=== PATIENT | female | born 1995 | race Caucasian/White ===

== ENCOUNTER 2023-09-23 08:44 | Outpatient (AMB) | payer OTHER, SELFPAY ==
--- NOTE | 2023-09-23 10:19 | AM.OFFWIN_ITS ---
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 Reporting symptoms of sinus breann estion, sore throat and difficulty swallowing. Low-grade fever. No family member is sick. No recent travel. Patient reports symptoms of malaise and fatigue. [facility] Social History Patient Tobacco Use Status: Never used Tobacco Physical Exam Vital Signs: Last Vital Signs Temp 98.3 F 09/23/23 10:26 Pulse 85 09/23/23 10:26 BP 130/76 09/23/23 10:26 Pulse Ox 97 09/23/23 10:26 Oxygen Delivery Method Room Air 09/23/23 10:26 Const General: cooperative and healthy appearing Nutritional Appearance: well nourished Orientation/consciousness: patient oriented x3 Limitations: no limitations HEENT Head: Yes normal to inspection Eyes General: appearance normal, both eyes and all related structures Neck Neck: Yes normal visual inspection Chest Chest palpation & inspection: normal palpation of entire chest wall Resp Effort & Inspection: normal respiratory effort Neuro General: patient oriented x3 Results AMB Rapid Strep AMB Rapid Strep Negative Last Edit by Marine Esqueda CMA on 09/23/23 10:37 Results Reviewed Results Reviewed: Laboratory Last Values Strep Scn Rapid Clinic Negative 09/23/23 10:32 Assessment & Plan Assessment & Plan (1) Upper respiratory tract infection: Code(s): J06.9 - Acute upper respiratory infection, unspecified Plan: Antibiotics ordered. Increase fluid intake. Tylenol for aches and pains. If symptoms worsen, follow-up here for a recheck. Orders: Orders AMB Rapid Strep Screen Today J02.9 - Acute pharyngitis, unspecified WAYLON Quevedo Medications: New azithromycin take 500 mg today (day 1), then 250 mg for 4 days (days 2-5) PO 6 tabs 0RF Zion Conway MD Coding Level of Care Code Est Pt Level 3 (58010) Diagnoses Upper respiratory tract infection J06.9
[2023-09-23 10:26] VITALS: BP 130/76; PULSE 85; TEMP 36.8; O2SAT 97
== END 2023-09-23 11:04 | disposition home or self-care (01) ==
LOC: HO.HMGWI 08:44
PROVIDERS: Visit Provider Internal Medicine
DX: J06.9 Acute upper respiratory infection, unspecified (principal); J02.9 Acute pharyngitis, unspecified
CPT/HCPCS: 87880; 99213

== ENCOUNTER 2025-01-14 08:36 | Outpatient (AMB) | payer OTHER, SELFPAY ==
--- NOTE | 2025-01-14 08:42 | A.OFFPC_ITS ---
Vital Signs 01/14/25 08:45 Height 5 ft 4.76 in Weight 316 lb 8 oz BMI 53.1 BP 130/70 Blood Pressure Location Lt brachial Position Sitting Pulse 85 Pulse Source Pulse Oximeter Temp 97.5 F Temp Source Temporal Artery Scan Pulse Oximetry (%) 93 Oxygen Delivery Method Room Air Intake Visit Reasons: establish care Intake Note: Patient is a new patient here to establish care for Hx Asthma, ADHD. Transferring care from [facility]. Medical records have been requested and have not received. Field Support Technician Required: No Ware Finisher: Not Required per policy Accompanied by: Self / Same As Patient Allergies amoxicillin Allergy (Mild, Verified 01/14/25 08:49) Unknown codeine Allergy (Mild, Verified 01/14/25 08:49) Hives Penicillins Allergy (Mild, Verified 01/14/25 08:49) Unknown Medication List - Last Reconciled 01/14/25 by Kalpana Mendez PA-C escitalopram oxalate 5 mg PO DAILY levonorgestrel (Mirena) intrauterine Tobacco use date assessed: 01/14/25 Dental Screening Dental Screen Date: 01/14/25 Did you have a dental visit in the last 12 months?: Yes Did you have a dental problem in the last 6 months where you did not have access to dental care?: No Was dental information given to patient?: Patient has dentist HPI establish care HPI Details 29-year-old female coming to the office for the 1st time. Presenting for a wellness examination required for her employment. Her history includes anxiety and depression, currently managed with newly started escitalopram, although no significant effects have been mentioned thus far. The patient is followed by a psychiatrist and a therapist. Her menstrual cycles have ceased due to the Mirena IUD placement, and she attended regular gynecological evaluations at [facility]. Currently, she reports left wrist tendinitis, with pain upon certain motions, but no numbness or tingling reported. 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 1. Little interest or pleasure in doing things: not at all 2. Feeling down, depressed, or hopeless: several days 3. Trouble falling or staying asleep, or sleeping too much: several days 4. Feeling tired or having little energy: several days 5. Poor appetite or overeating: not at all 6. Feeling bad about yourself - or that you are a failure or have let yourself or your family down: several days 7. Trouble concentrating on things, such as reading the newspaper or watching television: more than half the days 8. Moving or speaking so slowly that other people could have noticed. Or the opposite - being so fidgety or restless that you have been moving around a lot more than usual: not at all 9. Thoughts that you would be better off or of hurting yourself in some way: not at all Total score: 6 Depression Screening Interpretation: Positive Depression Screening Follow-up: Existing condition and In treatment Depression Screening Done: Yes 61405 - PHQ-9 Billing: Yes Source: Developed by Drs. Elvin Gilbert, Sonya Sheikh, Adalid Scott and colleagues, with an educational nevaeh from [employer]. Thrive Questionnaire Date Thrive assessed: 01/14/25 I am a: Patient What is your living situation today?: I have a steady place to live Within the past 12 months, did the food you bought not last and you didn't have the money to get more?: Never true Within the past 12 months, did you worry whether your food would run out before you got money to buy more?: Never true Do you have trouble paying for medicines?: No Do you have trouble getting transportation to medical appointments?: No Do you have trouble paying your heating and electricity bill?: No Do you have trouble taking care of your child, family member or friend?: No Do you have trouble with day-to-day activities such as bathing, preparing meals, shopping, managing finances, etc.?: No Are you currently unemployed and looking for a job?: No Are you interested in more education?: No Please select the resources that you would like help with: None Currently or been in a relationship where the following occur: I choose not to answer THRIVE Score: 0 AUDIT C Alcohol Use Questionnaire (AUDIT-C) 1. How often do you have a drink containing alcohol?: Never Total Score: 0 ELIZABETH-7 AMB Questionnaire ELIZABETH-7 Date ELIZABETH - 7 assessed: 01/14/25 Feeling nervous, anxious, or on edge: 2 = More than half the days Not being able to stop or control worryin = More than half the days Worrying too much about different things: 1 = Several days Trouble relaxin = Not at all Being so restless that it is hard to sit still: 0 = Not at all Becoming easily annoyed or irritable: 3 = Nearly every day Feeling afraid as if something awful might happen: 0 = Not at all Total ELIZABETH-7 score (0-4 normal; 5-9 mild; 10-14 moderate; 15-21 severe): 8 Source: Developed by Drs. Elvin Gilbert, Sonya Sheikh, Adalid Scott and colleagues, with an educational nevaeh from [employer]. ELIZABETH-7 Assessment Billing ELIZABETH-7 Assessment Tool: ELIZABETH-7 Assessment 13001 Review of Systems Const Denies body aches, Denies chills, Denies fatigue, Denies fever(s), Denies headache(s) and Denies poor appetite Eyes Reports no additional complaints ENT Denies dysphagia, Denies dizziness, Denies headache(s) and Denies odynophagia Card Denies chest pain, Denies syncope, Denies edema, Denies irregular heart rhythm, Denies lightheadedness and Denies dyspnea Resp Denies cough and Denies dyspnea GI Denies abdominal pain, Denies constipation, Denies dysphagia, Denies diarrhea, Denies nausea, Denies odynophagia and Denies vomiting Denies urinary frequency, Denies dysuria, Denies urinary hesitancy and Denies urinary urgency Musc Reports no additional complaints and Denies abnormal gait Skin/Breast Reports system reviewed and no additional complaints, except as documented Neuro Denies abnormal gait, Denies dizziness, Denies syncope and Denies headache(s) Psych Reports no additional complaints Endo Denies fatigue Physical exam (Primary Care) Vital Signs: Last Vital Signs Temp 97.5 F 01/14/25 08:45 Pulse 85 01/14/25 08:45 BP 130/70 01/14/25 08:45 Pulse Ox 93 01/14/25 08:45 Oxygen Delivery Method Room Air 01/14/25 08:45 BMI result Body Mass Index 53.1 Tobacco/Smoking Status: Tobacco use Status Tobacco use date assessed 01/14/25 01/14/25 08:48 Patient Tobacco Use Status Never used Tobacco 01/14/25 08:48 e-Cigarette/Vaping Use Never Used 01/14/25 08:48 PHQ-9: PHQ-9 Score PHQ-9: Total score 6 01/14/25 09:01 Depression Screening Interpretation: Positive Depression Screening Follow-up: Existing condition and In treatment Thrive Assessment: Date of Thrive Assessment Date Thrive assessed 01/14/25 01/14/25 08:48 Currently or been in a relationship where the following occur: I choose not to answer Const General: cooperative, healthy appearing, comfortable and no acute distress Orientation/consciousness: patient oriented x3 HENMT Head: Yes normocephalic Ears: hearing grossly normal bilaterally General nose exam: Normal external nose present Face and sinus: Yes normal facial exam and Yes sinuses nontender Mouth: Normal oral and palatal mucosa present and tongue normal Throat: Yes posterior oropharynx normal Eyes General: appearance normal, both eyes and all related structures Conjunctivae: conjunctivae normal Pupils: Equal, round and reactive pupils present EOM: EOMs intact bilaterally and No Nystagmus present Neck Neck: Yes full ROM and Yes no lymphadenopathy Chest Chest palpation & inspection: normal inspection of the chest Resp Effort & Inspection: normal respiratory effort Auscultation: clear to auscultation bilaterally, no crackles, no rales, no rhonchi and no wheezes Cardio Rate: regular rate Rhythm: regular rhythm Peripheral pulses: radial pulses present and dorsalis pedis present GI Inspection: Yes normal to inspection and No Abdominal wall edema Palpation (GI): Soft to palpation, not firm and nontender Auscultation: normal bowel sounds Rectal Exam - Female: deferred General: Yes no CVA tenderness Back/Spine/Pelvis Back: no CVA tenderness Skin General skin exam: no rashes or lesions noted Neuro General: patient oriented x3 Cranial nerves: Yes Equal, round and reactive pupils present, Yes Midline tongue present, Yes Ability to bilaterally elevate shoulders present and No Nystagmus present Gait exam (Neuro): Normal gait present Extrem Other: Tenderness to palpation over left thenar eminence. Positive Eva test in the left side General: Yes normal to inspection, Yes full ROM and No edema Psych Speech and movement: Normal speech and movement present Affect: normal affect Attitude: cooperative Insight: Good insight present (Psych) Judgement: Good judgement present (Psych) Immunizations Boostrix Tdap 2.5 Lf unit-8 mcg-5 Lf/0.5 mL intramuscular syringe Performing Provider: Kalpana Mendez PA-C Performing Location: [facility] Administered by: Hui Romero LPN on 01/14/25 09:16 Dose Route Admin Location Dispensed Lot Number Expiration Date NDC Chief Nurse Anesthetist 0.5 mL IM Left Deltoid 0.5 mL [id number] 04/12/27 [id number] [employer] VIS Given Date VIS Provided VIS Publication Date 01/14/25 Single Vaccine 21 Eligibility Eligibility Date Funding Source Not [facility] Eligible 01/14/25 Private Coding Level of Care Code New Pt Prev Care 18-39yr(83072 Diagnoses Anxiety F41.9 Depression F32.A Annual physical exam Z00.00 Tendinitis, de Quervain's M65.4 Additional Codes ELIZABETH-7 Assessment Billing - ELIZABETH-7 Assessment Tool: ELIZABETH-7 Assessment 06027 ([id number]) PHQ-9 - 98706 - PHQ-9 Billing: Yes ([id number]) Assessment & Plan Assessment & Plan (1) Anxiety: Code(s): F41.9 - Anxiety disorder, unspecified Category: Medical Plan: Patient currently following with psychiatrist and counselor. Continue on escitalopram. (2) Depression: Code(s): F32.A - Depression, unspecified Category: Medical Plan: Patient currently following with psychiatrist and counselor. Continue on escitalopram. (3) Annual physical exam: Code(s): Z00.00 - Encounter for general adult medical examination without abnormal findings Category: Medical Plan: Patient is up-to-date on all recommended routine screenings and vaccinations for her age. Tetanus vaccine was updated today. Healthy diet and regular exercise is encouraged. Plan to follow up in 1 year or sooner if new problems arise or pending blood work evaluation. Ordered for updated blood work (4) Tendinitis, de Quervain's: Code(s): M65.4 - Radial styloid tenosynovitis [de Quervain] Category: Medical Plan: Tenderness to palpation over left thenar eminence and positive Eva test on the left side suggestive of de Quervain tendonitis. Recommend heating pads, Tylenol and ibuprofen as needed for pain and the use of a thumb spica splint. Advised to follow up if symptoms worsen or persist. Can consider orthopedics referral or occupational therapy referral Plan This note was constructed using voice recognition software. While every effort has been made to ensure accuracy and prom burn off operator, still areas may have been included sometimes these areas may affect the content or meeting of the given symptoms. Total time spent caring for the patient today was 30 minutes. This includes time spent before the visit reviewing the chart, time spent during the visit, and time spent after the visit and documentation. Patient was informed and verbally consented to the use of an ambient scribe for clinic note documentation during this visit. Orders: Orders TSH reflex Free T4 Today Z00.00 - Encounter for general adult medical examination without abnormal findings CT NG by PCR Today Z00.00 - Encounter for general adult medical examination without abnormal findings Comprehensive Met. Panel Today Z00.00 - Encounter for general adult medical examination without abnormal findings Free T4 (Free Thyroxine) Today Z00.00 - Encounter for general adult medical examination without abnormal findings Vitamin B12 and Folate Today Z00.00 - Encounter for general adult medical exa mination without abnormal findings Vitamin D 25-OH Total Today Z00.00 - Encounter for general adult medical examination without abnormal findings Complete Blood Count Auto Diff Today Z00.00 - Encounter for general adult medical examination without abnormal findings TDaP Immunization Today Z23 - Encounter for immunization Medications: New Boostrix Tdap (diphth,pertus(acell),tetanus) 0.5 mL IM ONCE 0.5 mL 0RF NS Z23 - Encounter for immunization
[2025-01-14 08:45] VITALS: BP 130/70; PULSE 85; TEMP 36.4; O2SAT 93; BMI 53.1
--- OUTSIDE RECORDS SUMMARY | 2025-01-14 09:07 | XMS_ITS | Clinical Summary ---
Author Organization [address] Address [address] [place] [phone] Phone Care Team Providers Care Donkey Ride Operator Name Role Phone Adriana Youssef MD Primary Care Provider [phone] Allergies Active Allergy Reactions Criticality Noted Date Comments Amoxicillin 07/13/2018 Codeine 07/13/2018 Medications levonorgestreL (MIRENA) 21 mcg/24hr (up to 8 yrs) 52 mg IUD 1 Each by Intrauterine route once. Active azithromycin (ZITHROMAX) 250 mg tablet TAKE 2 TABLETS BY MOUTH TODAY, THEN TAKE 1 TABLET DAILY FOR 4 DAYS DIRECTED 3 Active ibuprofen (ADVIL,MOTRIN) 600 mg tablet TAKE 1 TABLET BY MOUTH 4 TIMES A DAY FOR 7 DAYS 4 Active Lidocaine Viscous 2 % solution TAKE 15 ML (MUCOUS MEMBRANE) 2 TIMES PER DAY (PAIN) FOR 7 DAYS 4 Active metroNIDAZOLE (FLAGYL) 500 mg tablet Take 1 tablet (500 mg total) by mouth 2 (two) times a day. for 7 days 4 Active Active Problems Problem Noted Date Diagnosed Date Morbid obesity with BMI of 4 5.0-49.9, adult (CMS/[facility] V24, [facility] V28) 08/17/2024 Surgical History Surgery Date Site/Laterality Comments KIDNEY STONE SURGERY 04/2017 PROCEDURE: [place] NEPHROLITHOTOMY REMOVAL CALCULUS Medical History Medical History Date Comments Asthma DX:Asthma Kidney stone DX:Kidney stone Adhd DX:ADHD Family History Medical History Relation Name Comments Breast cancer Neg Hx Colon cancer Neg Hx Ovarian cancer Neg Hx Prostate cancer Neg Hx Uterine cancer Neg Hx Relation Name Status Comments Brother Alive Father Alive Maternal Grandfather Maternal Grandmother Alive Mother Alive Paternal Grandfather Alive Paternal Grandmother Sister 1 Alive Sister 2 Alive Social History Tobacco Use Types Packs/Day Years Used Date Smoking Tobacco: Never Smokeless Tobacco: Never Tobacco Cessation:Counseling Given: Not Answered Alcohol Use Standard Drinks/Week Comments Yes 0 (1 standard drink = 0.6 oz pur e alcohol) Comments No Sex and Gender Information Value Date Recorded Sex Assigned at Not on file Legal Sex Female 10:27 AM EST Gender Identity Not on file Sexual Orientation Not on file Obstetrics History Last Filed Vital Signs Vital Sign Reading Time Taken Comments Blood Pressure 130/88 09/10/2024 1:07 PM EST Pulse 89 09/10/2024 1:07 PM EST Temperature - - Respiratory Rate - - Oxygen Saturation - - Inhaled Oxygen Concentration - - Weight 146 kg (322 lb) 09/10/2024 1:07 PM EST Height 165.1 cm (5' 5 ) 01/10/2024 9:06 AM EDT Body Mass Index 53.58 01/10/2024 9:06 AM EDT Plan of Treatment Health Maintenance Due Date Last Done Comments DTaP,Tdap,and Td Vaccines (1 - Tdap) 01/27/2016 Hepatitis B Vaccines (1 of 3 - 19+ 3-dose series) 01/27/2016 Cholesterol Screening (Lipid Panel) 08/31/2022 Depression Screening 08/31/2022 Social Influencers of Health Screening 08/31/2022 COVID-19 Vaccine ( season) 2024 Influenza Vaccine (Season Ended) 2025 Cervical Cancer Screening: Pap Smear 11/16/2025 11/16/2022, 11/16/2022, 11/16/2022, Additional history exists HIV Screening Completed 09/10/2024, 040 06/2024, 01/10/2024 Hepatitis C Screening Completed 09/10/2024, 024 HIB Vaccines Aged Out No longer eligi ble based on patient's age to complete this topic HPV Vaccines Aged Out No longer eligi ble based on patient's age to complete this topic Hepatitis A Vaccines Aged Out No long er eligible based on patient's age to complete this topic IPV Vaccines Aged Out No longer eligi ble based on patient's age to complete this topic MMR Vaccines Aged Out No longer eligi ble based on patient's age to complete this topic Meningococcal ACWY Vaccine Aged Out N o longer eligible based on patient's age to complete this topic Meningococcal B Vaccine Aged Out No l onger eligible based on patient's age to complete this topic Pneumococcal Vaccine: Pediatrics (0 to 5 Years) and At-Risk Patients (6 to 64 Years) Aged Out No longer eligible based on patient's age to complete this topic RSV Immunization Patients Under 20 months Aged Out No longer eligible based on patient's age to complete this topic Varicella Vaccines Aged Out No longer eligible based on patient's age to complete this topic Procedures Procedure Name Priority Date/Time Associated Diagnosis Comments HEPATITIS C ANTIBODY Routine 09/10/2024 1:27 PM EST Encounter for screening for viral disease HIV 1, 2 ANTIBODY, P24 ANTIGEN WITH REFLEX TO DIFFERENTIATION Routine 09/10/2024 1:27 PM EST Encounter for screening for viral disease PAP SMEAR Routine 11/16/2022 from Last 3 Months or Most Recently Relevant to Health Maintenance Results * Hepatitis C antibody (09/10/2024 1:27 PM EST) Hepatitis C Antibody Negative Negative LAB CHEMISTRY METHOD 09/10/2024 6:15 PM EST [facility] Blood Venous blood specimen / Unknown Venipuncture / Unknown 09/10/2024 1:27 PM EST 09/10/2024 1:27 PM EST us Rosanne SALTER LAB BLOOD ORDERABLES Final Re sult [facility] [address] [place] [address], [place] [phone] * HIV 1,2 antibody, p24 antigen with reflex to differentiation (09/10/2024 1:27 PM EST) HIV Combo AB/AG Negative Negative LAB CHEMISTRY METHOD 09/10/2024 6:15 PM EST [facility] Blood Venous blood specimen / Unknown Venipuncture / Unknown 09/10/2024 1:27 PM EST 09/10/2024 1:27 PM EST Narrative [facility]) [facility] - 09/10/2024 6:15 PM EST This assay is a 4th generation assay allowing for earlier detection of HIV infection by detecting the presence of the HIV-1 p24 antigen as well as the traditional antibodies to HIV type 1 (including group O) and type 2. ??Use of a 4th generation assay is the current CDC recommendation for HIV screening. Rosanne Fairbanks [facility] BLOOD ORDERABLES Final Re sult Performing Organization Address City/[facility]/ZIP Co de Phone Number [facility] [address] [place] [address], [place] [phone] * Pap smear (11/16/2022) 11/16/2022 Narrative HISTORICAL TESTING LAB RESULTING AGENCY - 11/24/2022 11:31 AM EST [id number] THINPREP PAP, IMAGED: NEGATIVE FOR SQUAMOUS INTRAEPITHELIAL LESION AND MALIGNANCY . FUNGAL ORGANISMS MORPHOLOGICALLY CONSISTENT WITH JAYESH SPP. SHIFT IN TU, SUGGESTIVE OF BACTERIAL VAGINOSIS. JOHNATHAN REDDY(ASCP) (CASE ELECTRONICALLY SIGNED 11 23 2022) ADEQUACY: SATISFACTORY ENDOCERVICAL/TRANSFORMATION ZONE COMPONENT PRESENT. SOURCE: THINPREP PAP HPV IF ASCUS: REFLEX 16 AND 18, CERVICAL CLINICAL INFORMATION: HPV IF DIAGNOSIS OF ASCUS. [Z12.4] HORMONES IUD PAP HX NEGATIVE Nely Monte DO LAB CYTOLOGY ORDERABLES Final Result HISTORICAL TESTING LAB RESULTING AGENCY from Last 3 Months or Most Recently Relevant to Health Maintenance Insurance [facility] PUBLIC PLANS COMMERCIAL GENERIC [facility] PUBLIC PLANS Care Teams Donkey Ride Operator Relationship Specialty Start Date End Date Adriana Youssef MD [address] [place] [phone] PCP - General Internal Medicine 05/16/18
== END 2025-01-14 09:22 | disposition home or self-care (01) ==
LOC: HO.HMCH 08:37
DX: F41.9 Anxiety disorder, unspecified (principal); F32.A Depression, unspecified; Z00.00 Encounter for general adult medical examination without abnormal findings; M65.4 Radial styloid tenosynovitis [de Quervain]; Z23 Encounter for immunization

== ENCOUNTER 2025-01-14 08:36 | Outpatient (REF) | payer OTHER, SELFPAY ==
[2025-01-14 09:37] LABS: MANUAL DIFF FLAG NO
[2025-01-14 09:53] LABS: Basophils Absolute Auto 0.1 X10*3/uL (0.0-0.2); Basophils Percent Auto 0.6 % (0-2); Eosinophils Absolute Auto 0.3 X10*3/uL (0.0-0.4); Eosinophils Percent Auto 2.8 % (0-4); Hematocrit 44.6 % (37.0-47.0); Imm Gran Abs Auto 0.03 X10*3/uL (0.00-0.03); Imm Gran Pct Auto 0.3 % (0.0-0.4); Lymphocytes Absolute Auto 3.5 X10*3/uL (1.2-4.9); Lymphocytes Percent Auto 38.9 % (20-40); Mean Corpuscular HGB Conc 33.6 g/dl (31.0-35.0); Mean Corpuscular Hemoglobin 29.7 pg (27.0-33.0); Mean Corpuscular Volume 88.3 fL (80.0-98.0); Mean Platelet Volume 9.1 fL (9.4-12.3); Monocytes Absolute Auto 0.6 X10*3/uL (0.1-1.2); Monocytes Percent Auto 6.3 % (2-11); Neutrophils Absolute Auto 4.5 x10*3/uL (2.0-8.3); Neutrophils Percent Auto 51.1 % (45-73); Platelet Count 328 X10*3/uL (160-400); Red Blood Count 5.05 X10*6/uL (4.20-5.50); White Blood Count 8.9 X10*3/uL (4.8-10.8)
--- OUTSIDE RECORDS SUMMARY | 2025-01-14 10:25 | XMS_ITS | Clinical Summary ---
Author Organization [address] Address [address] [place] [phone] Phone Care Team Providers Care Micro Photographer Name Role Phone Adriana Youssef MD Primary Care Provider [phone] Allergies Active Allergy Reactions Criticality Noted Date [...] obesity with BMI of 4 5.0-49.9, adult (CMS/[facility] V24, [facility] V28) 08/17/2024 Surgical History Surgery Date Site/Laterality Comments KIDNEY STONE SURGERY 04/2017 PROCEDURE: [place] NEPHROLITHOTOMY REMOVAL CALCULUS Medical History Medical History [...] LAB CHEMISTRY METHOD 09/10/2024 6:15 PM EST [facility] Blood Venous blood specimen / Unknown Venipuncture / Unknown 09/10/2024 1:27 PM EST 09/10/2024 1:27 PM EST us Rosanne SALTER LAB BLOOD ORDERABLES Final Re sult [facility] [address] [place] [address], [place] [phone] * HIV 1,2 antibody, p24 antigen with reflex to differentiation (09/10/2024 1:27 PM EST) HIV Combo AB/AG Negative Negative LAB CHEMISTRY METHOD 09/10/2024 6:15 PM EST [facility] Blood Venous blood specimen / Unknown Venipuncture / Unknown 09/10/2024 1:27 PM EST 09/10/2024 1:27 PM EST Narrative [facility] ([facility]) [facility] - 09/10/2024 6:15 PM EST This assay is a 4th generation assay allowing for earlier detection of HIV infection by detecting the presence of the HIV-1 p24 antigen as well as the traditional antibodies to HIV type 1 (including group O) and type 2. ??Use of a 4th generation assay is the current CDC recommendation for HIV screening. Rosanne Fairbanks [facility] BLOOD ORDERABLES Final Re sult Performing Organization Address City/[facility]/ZIP Co de Phone Number [facility] ([facility]) [facility] [address] [place] [address], [place] [phone] * Pap smear (11/16/2022) 11/16/2022 Narrative HISTORICAL TESTING LAB RESULTING AGENCY - 11/24/2022 11:31 AM EST [id number] THINPREP PAP, IMAGED: NEGATIVE FOR SQUAMOUS INTRAEPITHELIAL [...] Most Recently Relevant to Health Maintenance Insurance [facility] PUBLIC PLANS COMMERCIAL GENERIC [facility] PUBLIC PLANS Care Teams Micro Photographer Relationship Specialty Start Date End Date Adriana Youssef MD [address] [place] [phone] PCP - General Internal Medicine 05/16/18
[2025-01-14 10:28] LABS: Alanine Aminotransferase 30 U/L (0-31); Albumin Level 4.1 g/dL (3.5-5.0); Alkaline Phosphatase 95 U/L (39-117); Anion Gap 10 (12-20); Aspartate Amino Transferase 24 U/L (5-31); Bilirubin Total 0.5 mg/dL (0.0-1.0); Blood Urea Nitrogen 12 mg/dL (9-16); Carbon Dioxide 23 mmol/L (22-29); Chloride 109 mmol/L (96-108); Estimated Glomerular Filt Rate > 60; Glucose Random 86 mg/dL (60-115); Potassium 4.2 mmol/L (3.3-5.1); Sodium 138 mmol/L (135-145); Total Protein 7.3 g/dL (6.5-8.0)
[2025-01-14 10:43] LABS: Free T4 (Free Thyroxine) 0.96 ng/dL (0.71-1.85); TSH reflex Free T4 2.41 uIU/mL (0.32-4.0); Vitamin D 25-OH Total 9.5 ng/mL (>30)
[2025-01-14 11:08] LABS: Folate 10.4 ng/mL (> or = 4.0); Vitamin B12 489 pg/mL (200-900)
[2025-01-14 13:57] LABS: CT PCR NOT DETECTED (Not Detect.); NG PCR NOT DETECTED (Not Detect.)
== END 2025-01-14 08:37 | disposition home or self-care (01) ==
LOC: HO.LAB 08:36
DX: Z00.00 Encounter for general adult medical examination without abnormal findings (principal); Z23 Encounter for immunization; F41.9 Anxiety disorder, unspecified; M65.4 Radial styloid tenosynovitis [de Quervain]
CPT/HCPCS: 80053; 82306; 82607; 82746; 84439; 84443; 85025; 87491; 87591; 90471; 90715; 96127; 99385

== ENCOUNTER 2025-02-04 14:44 | Outpatient (AMB) | payer OTHER, SELFPAY ==
--- NOTE | 2025-02-04 14:51 | A.OFFPC_ITS ---
Vital Signs 02/04/25 14:52 Height 5 ft 4 in Weight 319 lb 8 oz BMI 54.8 BP 120/62 Blood Pressure Location Lt brachial Position Sitting Pulse 88 Pulse Source Pulse Oximeter Temp 97.3 F Temp Source Temporal Artery Scan Pulse Oximetry (%) 95 Oxygen Delivery Method Room Air Intake Visit Reasons: ? Kidney Stones Intake Note: Patient is here to follow up on Kidney stones. Innovation Manager Required: No Centerpuncher: Not Required per policy Accompanied by: Self / Same As Patient Allergies amoxicillin Allergy (Mild, Verified 02/04/25 14:52) Unknown codeine Allergy (Mild, Verified 02/04/25 14:52) Hives Penicillins Allergy (Mild, Verified 02/04/25 14:52) Unknown Medication List - Last Reconciled 02/04/25 by Kalpana Mendez PA-C cholecalciferol (vitamin D3) 25 mcg PO DAILY escitalopram oxalate 10 mg PO DAILY levonorgestrel (Mirena) intrauterine Tobacco use date assessed: 02/04/25 Dental Screening Dental Screen Date: 01/14/25 HPI ? Kidney Stones HPI Details 30-year-old female with past medical his tory of anxiety and depression last seen 01/2025 coming in for acute problem. Presenting with suspected renal calculi recurrence. She describes severe kidney stone pain that began at 3:40 AM and lasted until around 7:30 AM. There is a significant history of renal calculi treated with lithotripsy and stent placement approximately seven to eight years prior, with no subsequent episodes until now. The pain is localized to the right flank and notably absent from the abdominal region. She denies any trauma, heavy lifting, or recent accidents prior to this episode. Notable increase in urinary frequency with no hematuria or dysuria observed. Symptomatic relief is achieved temporarily with hot showers. She did call her Urologist but they were unable to see her due to inactivity as a patient. 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 Cognitive needs: No Hearing needs: No Vision needs: No Questionnaire Thrive Questionnaire Date Thrive assessed: 01/14/25 I am a: Patient What is your living situation today?: I have a steady place to live Within the past 12 months, did the food you bought not last and you didn't have the money to get more?: Never true Within the past 12 months, did you worry whether your food would run out before you got money to buy more?: Never true Do you have trouble paying for medicines?: No Do you have trouble getting transportation to medical appointments?: No Do you have trouble paying your heating and electricity bill?: No Do you have trouble taking care of your child, family member or friend?: No Do you have trouble with day-to-day activities such as bathing, preparing meals, shopping, managing finances, etc.?: No Are you currently unemployed and looking for a job?: No Are you interested in more education?: No Please select the resources that you would like help with: None Currently or been in a relationship where the following occur: I choose not to answer THRIVE Score: 0 AUDIT C Alcohol Use Questionnaire (AUDIT-C) 2. How many drinks containing alcohol do you have on a typical day when you are drinking?: 1 or 2 3. How often do you have six or more drinks on one occasion?: Never Total Score: 0 ELIZABETH-7 AMB Questionnaire ELIZABETH-7 Date ELIZABETH - 7 assessed: 01/14/25 Source: Developed by Drs. Elvin Gilbert, Sonya Sheikh, Adalid Scott and colleagues, with an educational nevaeh from [employer]. Review of Systems Const Denies body aches, Denies chills, Denies fever(s) and Denies poor appetite Eyes Reports no additional complaints Card Denies chest pain, Denies lightheadedness and Denies dyspnea Resp Denies dyspnea GI Denies abdominal pain, Denies constipation, Denies diarrhea, Denies nausea and Denies vomiting Reports as per HPI Musc Reports no additional complaints and Denies abnormal gait Skin/Breast Reports system reviewed and no additional complaints, except as documented Neuro Denies abnormal gait Psych Reports no additional complaints Physical exam (Primary Care) Vital Signs: Last Vital Signs Temp 97.3 F 02/04/25 14:52 Pulse 88 02/04/25 14:52 BP 120/62 02/04/25 14:52 Pulse Ox 95 02/04/25 14:52 Oxygen Delivery Method Room Air 02/04/25 14:52 BMI result Body Mass Index 54.8 Tobacco/Smoking Status: Tobacco use Status Tobacco use date assessed 02/04/25 02/04/25 14:56 Patient Tobacco Use Status Never used Tobacco 02/04/25 14:56 e-Cigarette/Vaping Use Never Used 02/04/25 14:56 Thrive Assessment: Date of Thrive Assessment Date Thrive assessed 01/14/25 02/04/25 14:56 Currently or been in a relationship where the following occur: I choose not to answer Const General: cooperative, healthy appearing, comfortable and no acute distress Orientation/consciousness: patient oriented x3 HENMT Head: Yes normocephalic Ears: hearing grossly normal bilaterally General nose exam: Normal external nose present Eyes General: appearance normal, both eyes and all related structures Conjunctivae: conjunctivae normal Neck Neck: Yes full ROM and Yes no lymphadenopathy Resp Effort & Inspection: normal respiratory effort Auscultation: clear to auscultation bilaterally, no crackles, no rales, no rhonchi and no wheezes Cardio Rate: regular rate Rhythm: regular rhythm GI Palpation (GI): Soft to palpation, not firm, nontender, no guarding, not rigid, no masses and No Rebound tenderness present General: Yes no CVA tenderness Back/Spine/Pelvis Other: no tenderness to palpation over spine or paraspinal muscles Back: no CVA tenderness Skin General skin exam: no rashes or lesions noted Neuro General: patient oriented x3 Gait exam (Neuro): Normal gait present Extrem General: Yes normal to inspection, Yes full ROM and No edema Psych Affect: normal affect Attitude: cooperative Insight: Good insight present (Psych) Judgement: Good judgement present (Psych) Results AMB Urinalysis Dipstick UR Leukocytes Negative Last Edit by CINDY Paul on 02/04/25 15:28 UR Nitrite Negative Last Edit by Prema Rocha Neda on 02/04/25 15:28 UR Urobilinogen Normal Last Edit by Darellfaizan Rocha A on 02/04/25 15:28 UR Protein Negative Last Edit by Darellfaizan Rocha, A on 02/04/25 15:28 UR Ph 6.0 Last Edit by Prema Rocha, A on 02/04/25 15:28 UR Blood Small Last Edit by Prema Rocha, A on 02/04/25 15:28 UR Specific Cameron 1.030 Last Edit by Prema Rocha, A on 02/04/25 15: 28 UR Ketone Negative Last Edit by Prema Rocha, A on 02/04/25 15:28 UR Bilirubin Negative Last Edit by Darellfaizan Rocha, A on 02/04/25 15:28 UR Glucose Negative Last Edit by Darellfaizan Rocha A on 02/04/25 15:28 Coding Level of Care Code Est Pt Level 3 (72372) Diagnoses Nephrolithiasis N20.0 Assessment & Plan Assessment & Plan (1) Nephrolithiasis: Code(s): N20.0 - Calculus of kidney Category: Medical Plan: I have arranged an urgent renal ultrasound to detect any recurrence of renal calculi. A referral to urology has also been made to ensure specialist felice luation. I have recommended meloxicam for managing pain during the day, and a muscle relaxant for nighttime to alleviate discomfort at patient request. A urine analysis will also be conducted to check for blood or infection signs in the urinary tract, with follow-up contingent upon these results. Urinalysis today showing blood in the urine concerns for kidney stone. Reviewed with patient red flag symptoms and when to present for re-evaluation. Plan This note was constructed using voice recognition software. While every effort has been made to ensure accuracy and training development director, still areas may have been included sometimes these areas may affect the content or meeting of the given symptoms. Total time spent caring for the patient today was 20 minutes. This includes time spent before the visit reviewing the chart, time spent during the visit, and time spent after the visit and documentation. Patient was informed and verbally consented to the use of an ambient scribe for clinic note documentation during this visit. Orders: Orders US renal BI Today N20.0 - Calculus of kidney AMB Urinalysis Dipstick Today Z13.9 - Encounter for screening, unspecified Referrals Urology Referral N20.0 - Calculus of kidney Medications: New meloxicam 15 mg PO DAILY 30 tabs 0RF cyclobenzaprine 5 mg PO BEDTIME 14 tabs 0RF
[2025-02-04 14:52] VITALS: BP 120/62; PULSE 88; TEMP 36.3; O2SAT 95; BMI 54.8
--- OUTSIDE RECORDS SUMMARY | 2025-02-04 16:17 | XMS_ITS | Clinical Summary ---
Author Organization [address] Address [address] [place] [phone] Phone Care Team Providers Care Cat Scan Technologist Name Role Phone Adriana Youssef MD Primary Care Provider [phone] Allergies Active Allergy Reactions Criticality Noted Date [...] obesity with BMI of 4 5.0-49.9, adult (CMS/[facility] V24, [facility] V28) 08/17/2024 Surgical History Surgery Date Site/Laterality Comments KIDNEY STONE SURGERY 04/2017 PROCEDURE: [place] NEPHROLITHOTOMY REMOVAL CALCULUS Medical History Medical History [...] LAB CHEMISTRY METHOD 09/10/2024 6:15 PM EST [facility] Blood Venous blood specimen / Unknown Venipuncture / Unknown 09/10/2024 1:27 PM EST 09/10/2024 1:27 PM EST us Rosanne SALTER LAB BLOOD ORDERABLES Final Re sult [facility] [address] [place] [address], [place] [phone] * HIV 1,2 antibody, p24 antigen with reflex to differentiation (09/10/2024 1:27 PM EST) HIV Combo AB/AG Negative Negative LAB CHEMISTRY METHOD 09/10/2024 6:15 PM EST [facility] Blood Venous blood specimen / Unknown Venipuncture / Unknown 09/10/2024 1:27 PM EST 09/10/2024 1:[address] [facility] ([facility]) [facility] - 09/10/2024 6:15 PM EST This assay is a 4th generation assay allowing for earlier detection of HIV infection by detecting the presence of the HIV-1 p24 antigen as well as the traditional antibodies to HIV type 1 (including group O) and type 2. ??Use of a 4th generation assay is the current CDC recommendation for HIV screening. Rosanne Fairbanks [facility] BLOOD ORDERABLES Final Re sult Performing Organization Address City/[facility]/ZIP Co de Phone Number [facility] ([facility]) [facility] [address] [place] [address], [place] [phone] * Pap smear (11/16/2022) 11/16/2022 Narrative HISTORICAL TESTING LAB RESULTING AGENCY - 11/24/2022 11:31 AM EST [id number] THINPREP PAP, IMAGED: NEGATIVE FOR SQUAMOUS INTRAEPITHELIAL [...] Most Recently Relevant to Health Maintenance Insurance [facility] PUBLIC PLANS COMMERCIAL GENERIC [facility] PUBLIC PLANS Care Teams Cat Scan Technologist Relationship Specialty Start Date End Date Adriana Youssef MD [address] [place] [phone] PCP - General Internal Medicine 05/16/18
--- OUTSIDE RECORDS SUMMARY | 2025-02-04 16:17 | XMS_ITS ---
[facility] Name [facility] Unknown History of Medication Use Medication Directions Dispensed Refills Start Date End Date Stat us No known medications No known medications active Problems Problem Status Onset Date Problem Type Date of Resolution Source Encounter for issue of other medical certificate active EncounterDiagnosisAct [facility] Screening examination for pulmonary tuberculosis active EncounterDiagnosisAct [facility] Immunizations Vaccine Date Source Lot Number Status PPD Test 01/18/2025 [id number] completed Encounters Encounter Type Encounter Reason Primary Diagnosis Location Date Ambulatory Tb Skin Test [place] Encounter for screening for respiratory tuberculosis [facility] 01/21/2025 Care Team Organization Name Specialty Phone Email Start Date End Da te [facility] NO PCP Primary Care 01/21
== END 2025-02-04 15:31 | disposition home or self-care (01) ==
LOC: HO.HMCH 14:45
DX: N20.0 Calculus of kidney (principal); Z13.9 Encounter for screening, unspecified

== ENCOUNTER → 2025-02-04 14:44 | Outpatient (BNVA) | payer OTHER, SELFPAY | DX: N20.0 Calculus of kidney (principal) | CPT/HCPCS: 81002; 99212 ==

== ENCOUNTER 2025-02-07 10:02 | Outpatient (REF) | payer OTHER, SELFPAY ==
--- NOTE | ~2025-02-07 | US_ITS ---
EXAMINATION: US RETROPERITONEAL LIMITED (RENAL ONLY) CLINICAL INFORMATION: Calculus of kidney.. COMPARISON: None available. TECHNIQUE: Real-time imaging of the kidneys. FINDINGS: RIGHT KIDNEY: 11.9 x 5.1 x 6.1 cm (SAG x AP x TRV). The kidney is normal in size, contour, and echogenicity. Renal cortical thickness is normal. No focal parenchymal lesions. No hydronephrosis. Nonobstructing lower pole calculus measuring 6 x 4 x 5 mm. LEFT KIDNEY: 13.2 x 5.6 x 5.0 cm (SAG x AP x TRV). The kidney is normal in size, contour, and echogenicity. Renal cortical thickness is normal. No calculi or focal parenchymal lesions. No hydronephrosis. US/US renal BI IMPRESSION: 1. Nonobstructing 6 mm lower pole calculus right kidney. 2. Normal left kidney. Electronically signed by: Giancarlo Kee MD 02/07/2025 10:35 AM EDT
--- OUTSIDE RECORDS SUMMARY | 2025-02-07 11:08 | XMS_ITS | Clinical Summary ---
Author Organization [address] Address [address] [place] [phone] Phone Care Team Providers Care Visualizer Name Role Phone Adriana Youssef MD Primary Care Provider Allergies Active Allergy Reactions Criticality Noted Date [...] 5.0-49.9, adult (CMS/[facility] V24, [facility] V28) 08/17/2024 Surgical History Surgery Date Site/Laterality Comments KIDNEY STONE SURGERY 04/2017 PROCEDURE: [place] NEPHROLITHOTOMY REMOVAL CALCULUS Medical History Medical History [...] LAB CHEMISTRY METHOD 09/10/2024 6:15 PM EST [facility] Blood Venous blood specimen / Unknown Venipuncture / Unknown 09/10/2024 1:27 PM EST 09/10/2024 1:27 PM EST us Rosanne SALTER LAB BLOOD ORDERABLES Final Re sult [facility] [address] [place] [address], [place] [phone] * HIV 1,2 antibody, p24 antigen with reflex to differentiation (09/10/2024 1:27 PM EST) HIV Combo AB/AG Negative Negative LAB CHEMISTRY METHOD 09/10/2024 6:15 PM EST [facility] Blood Venous blood specimen / Unknown Venipuncture / Unknown 09/10/2024 1:27 PM EST 09/10/2024 1:27 PM EST Narrative [facility] ([facility]) [facility] - 09/10/2024 6:15 PM EST This assay is a 4th generation assay allowing for earlier detection of HIV infection by detecting the presence of the HIV-1 p24 antigen as well as the traditional antibodies to HIV type 1 (including group O) and type 2. ??Use of a 4th generation assay is the current CDC recommendation for HIV screening. Rosanne Fairbanks [facility] BLOOD ORDERABLES Final Re sult Performing Organization Address City/[facility]/ZIP Co de Phone Number [facility] ([facility]) [facility] [address] [place] [address], [place] [phone] * Pap smear (11/16/2022) 11/16/2022 Narrative HISTORICAL TESTING LAB RESULTING AGENCY - 11/24/2022 11:31 AM EST [id number] THINPREP PAP, IMAGED: NEGATIVE FOR SQUAMOUS INTRAEPITHELIAL [...] Most Recently Relevant to Health Maintenance Insurance [facility] PUBLIC PLANS COMMERCIAL GENERIC [facility] PUBLIC PLANS Care Teams Visualizer Relationship Specialty Start Date End Date Adriana Youssef MD [address] [place] [phone] PCP - General Internal Medicine 05/16/18
== END 2025-02-07 10:03 | disposition home or self-care (01) ==
LOC: HO.US 10:02
DX: N20.0 Calculus of kidney (principal)
CPT/HCPCS: 76775

== ENCOUNTER → 2025-02-07 10:08 | Outpatient (BNV) | payer OTHER, SELFPAY | PROVIDERS: Visit Provider Radiology Diagnostic Radiology | DX: N20.0 Calculus of kidney (principal) | CPT/HCPCS: 76775 ==

== ENCOUNTER 2025-09-19 14:01 | Outpatient (AMB) | payer OTHER, SELFPAY ==
[2025-09-19 14:14] VITALS: BP 138/88; PULSE 85; RESP 18; O2SAT 98; BMI 55.5
--- NOTE | 2025-09-19 14:14 | MHC.PC.OV ---
Vital Signs 09/19/25 14:14 Height 5 ft 4 in Weight 323 lb 6 oz BMI 55.5 BP 138/88 Blood Pressure Location Lt brachial Position Sitting Respiration 18 Pulse 85 Pulse Source Pulse Oximeter Temp Source Temporal Artery Scan Pulse Oximetry (%) 98 Oxygen Delivery Method Room Air Intake Visit Reasons: both feet little holes / Keratosis Cadence Specialists Required: No Accompanied by: Self / Same As Patient Allergies amoxicillin Allergy (Mild, Verified 09/19/25 14:43) Unknown codeine Allergy (Mild, Verified 09/19/25 14:43) Hives Penicillins Allergy (Mild, Verified 09/19/25 14:43) Unknown Tobacco use date assessed: 09/19/25 Dental Screening Dental Screen Date: 09/19/25 Did you have a dental visit in the last 12 months?: Yes Did you have a dental problem in the last 6 months where you did not have access to dental care?: No Was dental information given to patient?: Patient has dentist HPI both feet little holes / Keratosis HPI Details The patient is an 30-year-old female presenting with complaints of firm bumpy, indentation on bottom of both feet. The patient denies foot odor. Bilateral foot bottom noted with small black appearing dots. Different layers of scattered thickening of the skin. Denies pain and discomfort. The patient reports that she has been having a strong vaginal odor on and off. She denies any drainage, denies itchiness. Reports that she is concerns that she might have BV or UTI. Urine sample obtained, negative urinalysis. Will send for culture. No kit of vaginal culture is available. Will treat the patient prophylactically metronidazole 0.75% gel intravaginal twice a week. 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 Cognitive needs: No Hearing needs: No Vision needs: No Questionnaire Thrive Questionnaire Date Thrive assessed: 09/19/25 I am a: Patient What is your living situation today?: I have a steady place to live Within the past 12 months, did the food you bought not last and you didn't have the money to get more?: Never true Within the past 12 months, did you worry whether your food would run out before you got money to buy more?: Never true Do you have trouble paying for medicines?: No Do you have trouble getting transportation to medical appointments?: No Do you have trouble paying your heating and electricity bill?: No Do you have trouble taking care of your child, family member or friend?: No Do you have trouble with day-to-day activities such as bathing, preparing meals, shopping, managing finances, etc.?: No Are you currently unemployed and looking for a job?: No Are you interested in more education?: No Please select the resources that you would like help with: None Currently or been in a relationship where the following occur: I choose not to answer THRIVE Score: 0 ELIZABETH-7 AMB Questionnaire ELIZABETH-7 Date ELIZABETH - 7 assessed: 01/14/25 Source: Developed by Drs. Elvin Gilbert, Sonya Sheikh, Adalid Scott and colleagues, with an educational nevaeh from [employer]. Review of Systems Const Denies body aches, Denies chills, Denies fever(s), Denies headache(s) and Denies poor appetite Eyes Reports no additional complaints ENT Denies dysphagia, Denies dizziness, Denies headache(s) and Denies odynophagia Card Denies chest pain, Denies syncope, Denies edema, Denies irregular heart rhythm, Denies lightheadedness and Denies dyspnea Resp Denies cough and Denies dyspnea GI Denies abdominal pain, Denies constipation, Denies dysphagia, Denies diarrhea, Denies nausea, Denies odynophagia and Denies vomiting Reports vaginal odor Musc Reports no additional complaints and Denies abnormal gait Skin/Breast Reports other (bottom of feet bumpy areas) Neuro Denies abnormal gait, Denies dizziness, Denies syncope and Denies headache(s) Psych Reports no additional complaints Physical exam (Primary Care) Vital Signs: Last Vital Signs Pulse 85 09/19/25 14:14 Resp 18 09/19/25 14:14 BP 138/88 09/19/25 14:14 Pulse Ox 98 09/19/25 14:14 Oxygen Delivery Method Room Air 09/19/25 14:14 BMI result Body Mass Index 55.5 Tobacco/Smoking Status: Tobacco use Status Tobacco use date assessed 09/19/25 09/19/25 14:20 Patient Tobacco Use Status Never used Tobacco 09/19/25 14:20 e-Cigarette/Vaping Use Never Used 09/19/25 14:20 Thrive Assessment: Date of Thrive Assessment Date Thrive assessed 09/19/25 09/19/25 14:20 Currently or been in a relationship where the following occur: I choose not to answer Const General: cooperative, healthy appearing, comfortable and no acute distress Orientation/consciousness: patient oriented x3 HENMT Head: Yes normocephalic Ears: hearing grossly normal bilaterally General nose exam: Normal external nose present Eyes General: appearance normal, both eyes and all related structures Conjunctivae: conjunctivae normal Neck Neck: Yes full ROM and Yes no lymphadenopathy Resp Effort & Inspection: normal respiratory effort Auscultation: clear to auscultation bilaterally, no crackles, no rales, no rhonchi and no wheezes Cardio Rate: regular rate Rhythm: regular rhythm General: Yes no CVA tenderness Manual OB Exam: Deferred manual OB exam Back/Spine/Pelvis Back: no CVA tenderness Skin Lesions: lesion noted (Bilateral soles of feet with darken spots/indentations and hyperkeratosis) Neuro General: patient oriented x3 Gait exam (Neuro): Normal gait present Extrem General: Yes normal to inspection, Yes full ROM and No edema Right lower extremity: foot (Bilateral soles of feet with darken spots/indentations and hyperkeratosis) Left lower extremity: foot (Bilateral soles of feet with darken spots/indentations and hyperkeratosis) Psych Affect: normal affect Attitude: cooperative Insight: Good insight present (Psych) Judgement: Good judgement present (Psych) Results AMB Urinalysis, Automated UA Leukoctes 0 Rodolfo/uL Last Edit by CINDY Paul on 09/19/25 14:48 UA Nitrite Negative Last Edit by CINDY Paul on 09/19/25 14:48 UA Urobilinogen 0 mg/dL Last Edit by Darellaudreyronaldo Resendizrobert, A on 09/19/25 14:48 UA Protein 0 mg/dL Last Edit by Prema Rocha, A on 09/19/25 14:48 UA pH 6.0 Last Edit by Darellaudreyronaldo Rocha, A on 09/19/25 14:48 UA Blood 0 Obie/uL Last Edit by Darellfaizan Resendizrobert, A on 09/19/25 14:48 UA Specific [place] 1.030 Last Edit by Darellfaizan Resendizrobert, A on 09/19/25 14:48 UA Ketone Negative Last Edit by Darelljoserosita Rocha, [facility] on 09/19/25 14:48 UA Bilirubin 0 mg/dL Last Edit by Darellaudreyronaldo Rocha, A on 09/19/25 14:48 UA Glucose 0 mg/dL Last Edit by Darellfaizan Rocha, A on 09/19/25 14:48 Coding Level of Care Code Est Pt Level 4 (47020) Diagnoses 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 Will start clindamycin 1% lotion and refer the patient to podiatry for further evaluation. (2) Vaginal odor: Code(s): N89.8 - Other specified noninflammatory disorders of vagina Category: Medical Plan: Patient is concerned of a UTI or BV. Denies vaginal discharge, dysuria, itchiness or any other symptoms. Urinalysis negative in office, will send to the lab for culture. Vaginal swabs were not available. We will treat the patient prophylactically. Metronidazole 0.75% vaginal gel ordered. Orders: Orders AMB Urinalysis Automated Today Z13.9 - Encounter for screening, unspecified UA CC w/rflx Micro + Cult Today R82.90 - Unspecified abnormal findings in urine Referrals Podiatry Referral L08.89 - Other specified local infections of the skin and subcutaneous tissue Medications: New metronidazole 0.75%(37.5mg/5gram) 1 appful vaginally apply two a week for 4-6 months; 70 grams 1RF 5 days clindamycin phosphate 1% 1 appl topical BID 60 mL 0RF 2 weeks Refilled cholecalciferol (vitamin D3) 25 mcg PO DAILY 90 caps 3RF
--- OUTSIDE RECORDS SUMMARY | 2025-09-19 18:17 | XMS_ITS ---
[facility] Name [facility] Unknown History of Medication [...] Lot Number Status PPD Test 01/18/2025 [id number] completed Encounters Encounter Type Encounter Reason Primary Diagnosis Location Date Ambulatory Tb Skin Test Reading Encounter for screening for respiratory tuberculosis [facility] 01/21/2025 Care Team Organization Name Specialty Phone Email Start Date End Da te [facility] NO PCP Primary Care 01/21
--- OUTSIDE RECORDS SUMMARY | 2025-09-19 18:17 | XMS_ITS | Encounter Summary ---
Author Organization [facility] Prior to 08/03/2024 Address [address] [place] [address] Care Team Providers Care Records Coordinator Name Role Phone Community, Pcp Primary Care Provider Adriana Lazo MD Primary Care Provider Unavailab endy Reason for Visit * Reason Onset Date Comments Medical Records 04/14/2018 Encounter Details Date Type Department Care Team Description 04/14/2018 [place] [address] Huber Ybarra CNM Medical Records Social History Tobacco Use Types Packs/Day Years Used Date Smoking Tobacco: Never Assessed Alcohol Habits Answer Date Recorded How often do you have a drink containing alcohol ? Monthly or less 11/28/2019 How many drinks containing a lcohol do you have on a typical day when you are drinking? Not asked How often do you have six or more drinks on one occasion? Never 11/28/2019 Sex Assigned at Date Recorded Not on file documented as of this encounter Miscellaneous Notes * Telephone Encounter - Sophie Rodriguez - 04/17/2018 11:18 AM EDT Received records from [facility] obgyn ; placed in scan * Telephone Encounter - Sophie Rodriguez - 04/14/2018 2:26 PM EDT Pt filled out LOPEZ to get records from [facility] [employer]; faxed documented in this encounter Plan of Treatment Not on file documented as of this encounter Visit Diagnoses Not on filedocumented in this encounter Care Teams Records Coordinator Relationship Specialty Start Date End Date Community, Pcp PCP - General Internal Medicine 04/14/18 05/15/18 Adriana Youssef MD PCP - General Internal Medicine 05/16/18 documented as of this encounter
--- OUTSIDE RECORDS SUMMARY | 2025-09-19 18:17 | XMS_ITS | Clinical Summary ---
Author Organization [address] Address [address] [place] [id number] Phone Care Team Providers Care Imaging Services Director Name Role Phone Adriana Youssef MD Primary Care Provider Unavailab le Allergies Active Allergy Reactions Criticality Noted Date [...] Diagnosed Date Morbid obesity with BMI of 45.0-49.9, adult 08/03 Surgical History Surgery Date Site/Laterality Comments KIDNEY STONE SURGERY 04/2017 PROCEDURE: [place] NEPHROLITHOTOMY REMOVAL CALCULUS Medical History Medical History [...] on file Sexual Orientation Not on file Last Filed Vital Signs Vital Sign Reading [...] series) 01/27/2016 Cholesterol Screening (Lipid Panel) 08/31/2022 Social Influencers of Health Screening 08/31/2022 HPV Vaccines (1 - 3-dose SCD M series) 01/27/2024 Depression Screening 10/03/2024 COVID-19 Vaccine (1 - 2024-2 6 season) 2025 Influenza Vaccine (#1) 2025 Cervical Cancer Screening: P ap Smear 11/16/2025 11/16/2022, 11/16/2022, 07/13/2018 RSV Immunization Adult Patients (1 - 1-dose 75+ series) 01/27/2072 HIV Screening Completed 09/10/2024, 01/10/2024, 01/10/2024 Hepatitis C Screening Completed 09/10/2024 , 01/10/2024 HIB Vaccines Aged Out No longer eligi [...] 5 Years) and At-Risk Patients (6 to 49 Years) Aged Out No longer eligible b ased on patient's age to complete this topic RSV Immunization Patients Under 20 months Aged Out No longer eligible b ased on patient's age to complete this topic [...] LAB CHEMISTRY METHOD 09/10/2024 6:15 PM EST [facility] Blood Venous blood specimen / Unknown Venipuncture / Unknown 09/10/2024 1:27 PM EST 09/10/2024 1:27 PM EST us Rosanne Fairbanks [facility] BLOOD ORDERABLES Final Re sult [facility] [address] [place] [address], [place] [phone] * HIV 1,2 antibody, p24 antigen with reflex to differentiation (09/10/2024 1:27 PM EST) HIV Combo AB/AG Negative Negative LAB CHEMISTRY METHOD 09/10/2024 6:15 PM EST [facility] Blood Venous blood specimen / Unknown Venipuncture / Unknown 09/10/2024 1:27 PM EST 09/10/2024 1:27 PM EST Narrative [facility] - 09/10/2024 6:15 PM EST This assay is a 4th generation assay allowing for earlier detection of HIV infection by detecting the presence of the HIV-1 p24 antigen as well as the traditional antibodies to HIV type 1 (including group O) and type 2. Use of a 4th generation assay is the current CDC recommendation for HIV screening. Rosanne Fairbanks [facility] BLOOD ORDERABLES Final Re sult Performing Organization Address [facility] [address]/ZIP Co de Phone Number [facility] [address] [place] [address], * Pap smear (11/16/2022) 11/16/2022 Narrative HISTORICAL TESTING LAB RESULTING AGENCY - 11/24/2022 11:31 AM EST [id number] THINPREP PAP, IMAGED: NEGATIVE FOR SQUAMOUS INTRAEPITHELIAL [...] Most Recently Relevant to Health Maintenance Insurance [facility] PUBLIC PLANS COMMERCIAL [employer]IC [employer]ANS Care Teams Imaging Services Director Relationship Specialty Start Date End Date Adriana Youssef MD PCP - General Internal Medicine 05/16/18
== END 2025-09-19 15:36 | disposition home or self-care (01) ==
DX: L08.89 Other specified local infections of the skin and subcutaneous tissue (principal); N89.8 Other specified noninflammatory disorders of vagina; Z13.9 Encounter for screening, unspecified

== ENCOUNTER 2025-09-19 14:01 | Outpatient (REF) | payer OTHER, SELFPAY ==
[2025-09-19 17:23] LABS: Appearance Urine Clear; Glucose Urine UA Negative (Negative); PH 5.0 (5.0-9.0); Specific Gravity - Urine 1.025 (1.005-1.025)
== END 2025-09-19 14:02 | disposition home or self-care (01) ==
LOC: HO.LNP 14:01
DX: R82.90 Unspecified abnormal findings in urine (principal); L08.89 Other specified local infections of the skin and subcutaneous tissue; N89.8 Other specified noninflammatory disorders of vagina
CPT/HCPCS: 81003; 99212